=== PATIENT | female | born 1950 | race Two or more races ===

== ENCOUNTER 2020-01-03 14:55 | Outpatient (CLI) | payer BC | END 2020-01-03 23:59 | disposition home or self-care (01) | LOC: MSC 14:55 | PROVIDERS: ATTEND Internal Medicine | DX: B02.9 Zoster without complications (principal); R10.9 Unspecified abdominal pain; I12.9 Hypertensive chronic kidney disease with stage 1 through stage 4 chronic kidney disease, or unspecified chronic kidney disease; N18.1 Chronic kidney disease, stage 1; E04.2 Nontoxic multinodular goiter; M81.0 Age-related osteoporosis without current pathological fracture; N85.00 Endometrial hyperplasia, unspecified ==

== ENCOUNTER 2020-01-05 08:58 | Outpatient (CLI) | payer BC | END 2020-01-05 23:59 | disposition home or self-care (01) | LOC: MSC 08:58 | PROVIDERS: ATTEND Internal Medicine | DX: R07.89 Other chest pain (principal); B02.9 Zoster without complications; E04.2 Nontoxic multinodular goiter; I12.9 Hypertensive chronic kidney disease with stage 1 through stage 4 chronic kidney disease, or unspecified chronic kidney disease; N18.1 Chronic kidney disease, stage 1; N28.1 Cyst of kidney, acquired; M41.9 Scoliosis, unspecified; E78.5 Hyperlipidemia, unspecified; M54.2 Cervicalgia; K64.9 Unspecified hemorrhoids; M81.0 Age-related osteoporosis without current pathological fracture; N85.00 Endometrial hyperplasia, unspecified ==

== ENCOUNTER 2020-11-16 10:14 | Outpatient (CLI) | payer BC | END 2020-11-16 23:59 | disposition home or self-care (01) | LOC: MSC 10:14 | PROVIDERS: ATTEND Internal Medicine | DX: I71.4 Abdominal aortic aneurysm, without rupture (principal); B02.9 Zoster without complications; R07.9 Chest pain, unspecified; M81.0 Age-related osteoporosis without current pathological fracture; E04.2 Nontoxic multinodular goiter; I12.9 Hypertensive chronic kidney disease with stage 1 through stage 4 chronic kidney disease, or unspecified chronic kidney disease; N18.1 Chronic kidney disease, stage 1; N28.1 Cyst of kidney, acquired; M41.9 Scoliosis, unspecified; E78.5 Hyperlipidemia, unspecified; K64.9 Unspecified hemorrhoids; M54.2 Cervicalgia; R93.89 Abnormal findings on diagnostic imaging of other specified body structures ==